=== PATIENT | male | born 1985 | race African-American/Black ===

== ENCOUNTER 2016-12-27 07:36 | Emergency (ER) | payer OTHER ==
[~2016-12-27] VITALS: Ht 170.2 cm; Wt 68.5 kg
[2016-12-27] MEDS ORDERED: NAPROSYN500 MG PO (07:51)
[2016-12-27] MEDS ORDERED: ULTRAM50 MG PO (07:51)
[2016-12-27] MEDS ORDERED: PEN-VEE K,VEET500 MG PO (07:51)
[2016-12-27 08:26] VITALS: BP 127/85
== END 2016-12-27 08:27 | disposition home or self-care (01) ==
LOC: EME 07:36
DX: K05.10 Chronic gingivitis, plaque induced (principal)
CPT/HCPCS: 99281; 99283